=== PATIENT | female | born 1950 | race Caucasian/White ===

== ENCOUNTER 2017-03-01 07:05 | Day surgery (SDC) | payer OTHER ==
[2017-02-28 09:04] VITALS: BMI 36.4
[~2017-03-01 07:05] MED LIST: LACTATED RINGERS 1,000 ML IV SCH; LIDOCAINE 1% 20 ML VIAL (10MG/ML) FOR IV START INTRADERMA PRN
[2017-03-01 07:38] VITALS: TEMP 96.9
[2017-03-01] MEDS ORDERED: LIDOCAINE 1% 20 ML VIAL (10MG/ML) FOR IV START INTRADERMA ONE (07:45)
[2017-03-01 07:52] LABS: Glucose,Whole Blood 117 mg/dL (75-99)
[2017-03-01] MEDS ORDERED: PROPOFOL 10 MG/ML 20 ML VIAL IV ONE (08:30)
[2017-03-01] MEDS ORDERED: LIDOCAINE 1% INJ 10MG/ML (20 ML MDV) ONE (08:30)
[2017-03-01 09:13] VITALS: PULSE 66; RESP 16
--- NOTE | 2017-03-01 09:16 | P.PCN ---
Date of Procedure: 03/01/17 Procedure(s) Performed: Procedure: Total colonoscopy. Preoperative diagnosis: Screening for neoplasia, as family history of rectal cancer. Postoperative diagnosis: Less than ideal preparation, however, exam to the cecum show no obvious pathology. Preparation: HalfLytely prep. Sedation: Was provided by anesthesia. Brief clinical history: The patient is a 66-year-old female who is referred for this evaluation for screening for neoplasia because of family history of rectal cancer in her father. Her last exam was around 6 years ago. She has no abdominal complaints, bleeding or anemia. Procedure: With the patient on her left lateral decubitus position and after informed consent and adequate sedation, the perianal area was inspected and it did not show any fissures or fistulas. There were no masses felt on digital rectal examination. The Olympus CFQ 160L video colonoscope was then inserted in the rectum in the usual fashion and advanced to the cecum. The preparation was less than ideal, however, I was able to have a fairly low after prolonged irrigation. No large polyps or tumors were seen. The mucosa appeared healthy. Small and diminutive polyps or superficial pathology could have been missed because of her preparation. No obvious diverticular disease was seen. I retroflexed endoscope in the rectum before the endoscope was withdrawn. The patient tolerated the procedure well. Plan: The patient was reassured. With her family history and less than ideal preparation today, I recommended a repeat exam in 2-3 years. We could go to a 5 year schedule after that. She will follow-up with you as planned.
[2017-03-01 09:34] VITALS: BP 147/80
== END 2017-03-01 10:02 | disposition home or self-care (01) ==
LOC: ORWHC2ENDO 07:05
DX: Z12.11 Encounter for screening for malignant neoplasm of colon (principal); Z80.0 Family history of malignant neoplasm of digestive organs; Z88.2 Allergy status to sulfonamides; Z91.040 Latex allergy status; I10 Essential (primary) hypertension; E78.5 Hyperlipidemia, unspecified; K21.9 Gastro-esophageal reflux disease without esophagitis; Z79.899 Other long term (current) drug therapy; Z79.1 Long term (current) use of non-steroidal anti-inflammatories (NSAID)
CPT/HCPCS: J2001; J2704; G0105

== ENCOUNTER → 2021-04-02 | Outpatient (CLI) | payer MEDICARE, OTHER ==
[2021-04-02 15:18] LABS: HCT 41.4 % (34.0-46.0); HGB 13.7 gm/dL (11.4-16.0); MCH 28.7 pg (25.0-35.0); MCHC 33.2 g/dL (31.0-37.0); MCV 86.6 fL (80.0-100.0); Mean Platelet Volume 7.2; Platelet Count 259 k/uL (150-450); RBC 4.78 m/uL (3.80-5.40); RDW 14.8 % (11.5-15.5); WBC 8.6 k/uL (3.8-10.6)
[2021-04-02 15:31] LABS: Albumin 4.8 g/dL (3.5-5.0); Potassium 4.6 mmol/L (3.5-5.1); Total Bilirubin 0.4 mg/dL (0.2-1.3); Total Protein 7.7 g/dL (6.3-8.2)
[2021-04-02 15:32] LABS: INR 0.9 (<1.2); Prothrombin Time 10.1 sec (9.0-12.0)
[2021-04-02 16:01] LABS: Appearance,Urine Clear (Clear); Bilirubin,Urine Negative (Negative); Blood,Urine Negative (Negative); Color,Urine Light Yellow; Glucose,Urine (UA) Negative (Negative); Ketones,Urine Negative (Negative); Leukocyte Esterase,Urine Negative (Negative); Nitrite,Urine Negative (Negative); PH, Urine 6.5 (5.0-8.0); Protein,Urine Negative (Negative); Specific Gravity,Urine 1.015 (1.001-1.035); Urobilinogen,Urine <2.0 mg/dL (<2.0)
== END | disposition home or self-care (01) ==
LOC: LABPAT 13:26
PROVIDERS: ATTEND Orthopaedic Surgery
DX: Z01.812 Encounter for preprocedural laboratory examination (principal); M16.11 Unilateral primary osteoarthritis, right hip
CPT/HCPCS: 36415; 80053; 81003; 85027; 85610; 85730; 87070

== ENCOUNTER 2021-04-14 08:06 | Day surgery (SDC) | payer MEDICARE, OTHER ==
[2021-04-07 15:26] VITALS: BMI 37.4
[~2021-04-14 08:06] MED LIST changes: +ACETAMINOPHEN TAB 500 MG TAB PO PRN; +DEXAMETHASONE SOD PHOSPHATE 4 MG/ML 1 ML VIAL IV ONE; +GABAPENTIN 300 MG CAP PO PRN; +LIDOCAINE 1% (10MG/ML) FOR IV START INTRADERMA PRN; -LIDOCAINE 1% 20 ML VIAL (10MG/ML) FOR IV START INTRADERMA PRN; +MELOXICAM 7.5 MG TAB PO PRN; +MIDAZOLAM 2 MG/2 ML VIAL IV PRN; +ONDANSETRON 4 MG/2 ML VIAL IVP ONE; +TRANEXAMIC ACID 1,000 MG in SODIUM CHLORIDE 0.9% 100 ML IVPB PRN
[2021-04-14] MEDS ORDERED: HYDROmorphone 0.5 MG/0.5 ML SYRINGE IVP PRN ×2 (09:11)
[2021-04-14] MEDS ORDERED: NALOXONE 0.4 MG/ML 1 ML VIAL IV PRN (09:11)
[2021-04-14] MEDS ORDERED: HYDROmorphone 0.2 MG/1 ML SYRINGE IVP PRN (09:11)
[2021-04-14] MEDS ORDERED: TRANEXAMIC ACID 1,000 MG/10 ML VIAL ONE (09:12)
[2021-04-14] MEDS ORDERED: PROPOFOL 10 MG/ML 20 ML VIAL IV ONE (09:12)
[2021-04-14] MEDS ORDERED: HEPARIN SODIUM,PORCINE 10,000 UNIT/ML 1 ML VIAL ONE (09:12)
[2021-04-14] MEDS ORDERED: LIDOCAINE 1% INJ 10MG/ML (20 ML MDV) ONE (09:12)
[2021-04-14] MEDS ORDERED: SUCCINYLCHOLINE CHLORIDE 100 MG/5 ML SYR IV ONE (09:12)
[2021-04-14] MEDS ORDERED: MIDAZOLAM 2 MG/2 ML VIAL ONE (09:12)
[2021-04-14] MEDS ORDERED: SODIUM CHLORIDE 0.9% 100 ML BAG ONE (09:12)
[2021-04-14] MEDS ORDERED: HYDROcodone/APAP 7.5-325MG 1 EACH TAB PO PRN ×2 (09:12)
[2021-04-14] MEDS ORDERED: SODIUM CHLORIDE 0.9% IRRIG 1,000 ML BTL IRRIGATION ONE (09:12)
[2021-04-14] MEDS ORDERED: fentaNYL (PF) 50 MCG/ML 2 ML AMP ONE (09:12)
[2021-04-14 09:13] LABS: Glucose,Whole Blood 131 mg/dL (75-99)
[2021-04-14] MEDS ORDERED: SODIUM CHLORIDE 0.9% 1,000 ML IV SCH (09:15)
[2021-04-14] MEDS ORDERED: ceFAZolin 3,000 MG in SODIUM CHLORIDE 0.9% IRRIGATIO 3,000 ML IRRIGATION ONE (09:17)
[2021-04-14] MEDS: ROPIVACAINE/EPI/CLONIDINE/KET 50 ML SYRINGE MISCELLANE PRN ×2 (09:35→10:30)
--- NOTE | 2021-04-14 10:42 | P.OP ---
Date of Procedure: 04/14/21 Preoperative Diagnosis: Severe osteoarthritis right hip Postoperative Diagnosis: Severe osteoarthritis right hip Procedure(s) Performed: Right total hip arthroplasty with a direct anterior approach Implants: [employer]hew Polarstem standard size 2 [employer]hew R3, 3 hole hemispherical acetabular shell, 50 mm [employer]hew Reflection 6.5 mm cancellus screw, 20 mm 2, 15 mm [employer]kin [employer]hew R3, XLPE 20 acetabular liner [employer]hew Oxinium femoral head 32 m, +0 All components were press-fit. The articulation is Oxinium on polyethylene. Anesthesia: GETA Surgeon: Kashif Dean Bender Machine #1: Radha Anderson Estimated Blood Loss (ml): 350 (115 mL returned with Cell Saver) Pathology: other (Femoral head) Condition: stable Disposition: PACU Indications for Procedure: After failure of conservative treatment we discussed the surgical and nonsurgical treatment options at length. Patient wishes to proceed with a total hip arthroplasty with a direct anterior approach. Complications specific to this procedure were discussed at length, including but not limited to infection, leg length discrepancy, dislocation, nerve injury, and fracture. Covid-19 was also discussed at length with the patient, and they are aware of the current policies and procedures. The patient was given the option of delaying surgery, but they elect to proceed knowing these risks. Patient is aware of all these complications and informed consent was obtained Operative Findings: The operative findings are consistent with severe osteoarthritis of the right hip Description of Procedure: Patient was seen and evaluated in the preoperative area and the consent was reviewed. The operative site was marked with a skin marker. The patient was then brought to the operating room and given preoperative antibiotics intravenously. 1 g of Tranexamic acid was also given intravenously. A general anesthetic was administered by the anesthesia department. The patient was then placed on the [place] table with the bony prominences well-padded. The hip area was then prepped with a ChloraPrep solution and draped in the usual sterile fashion. A universal timeout was then performed, which confirmed the patient's name, surgical site, ALLERGIES, and procedure being performed on the consent. Next the incision site was located at 1 cm distal to the anterior superior iliac spin e along the flexion crease of the hip. The skin and subcutaneous tissues were sharply incised. Incision was carefully dissected down to the fascia overlying the tensor fascia kareen muscle. This fascia was then incised in line with the incision. Care was taken to stay laterally in order to avoid injuring the lateral femoral cutaneous nerve. Next, using blunt finger dissection, the tensor fascia kareen muscle was dissected off its investing fascia. The muscle was then carefully retracted laterally with a cobra retractor over the lateral neck of the femur. Next, the circumflex vessels were identified and cauterized using the AquaMantis device. The anterior hip capsule was then exposed. The capsule was then opened and an inverted T fashion. Cobra retractors were then placed intracapsularly. The retractors were maintained intracapsular throughout the procedure. The proximal femur was then visualized. A small amount of traction was placed on the leg. The femoral neck was then osteotomized appropriate level above the lesser trochanter. A small wedge of bone was then removed from the remaining femoral head. Next, using a corkscrew the femoral head was removed from the acetabulum. On gross visual inspection, the femoral head had complete loss of articular cartilage and multiple periarticular osteophytes. The femoral head was then measured. Attention was then turned to the acetabulum. The acetabulum was exposed and any remaining labrum was excised. Sequential reaming of the acetabulum was performed using fluoroscopic guidance until there was a good bed of bleeding cancellus bone. When the appropriate size was reached, a trial was then placed. The position and fit of the trial was checked with fluoroscopy. The trial was then removed. Then, using fluoroscopic guidance, the final implant was impacted at 20 of anteversion and 40 of abduction, and fully seated in the acetabulum. 3 screws were then placed in the acetabulum. Again fluoroscopy was used to check position of the screws. Next, the liner was then impacted, with a 20 elevated liner located in the anterior superior quadrant. Component locking was confirmed. Attention was then directed to the femur. With the aid of the [place] table, the femur was externally rotated to approximately 130, extended, and adducted under the opposite leg. A side hook was then placed under the proximal femur, and the side hook elevator was used to elevate the proximal femur while releasing the capsule. Retractors were then placed. A capsular release was performed, as well as a release of the conjoined tendon, which afforded excellent visualization of the proximal femur. Next, a box osteotome was used to lateralize the proximal femur. A brusher hand was then used to locate the femoral canal. Sequential broaching was then performed with appropriate size which afforded excellent fixation in the proximal femur. A trial was then placed with appropriate head and neck, and the hip was gently reduced with the aid of the [place] table. Fluoroscopy was then used to check position of the components, as well as to ensure equal leg lengths. The hip was then gently dislocated and the trials were then removed. Final implants were then impacted and the hip was again reduced. Final fluoroscopic x-rays confirmed that the components were in anatomic position, as well as equal leg lengths. The hip was also taken through range of motion, and found to be stable. The hip was then copiously irrigated with antibiotic solution with pulsatile lavage. The hip was then irrigated with Irrisept solution. The soft tissues were then injected with a ropivacaine solution, which consisted of 246.25 mg of ropivacaine, 0.5 mg of epinephrine, 30 mg of Toradol, 80 g of clonidine, and 48.45 mL of sterile water, for a total of 100 mL of fluid injected. A second dose of 1 g of Tranexamic acid was also given intravenously. Any blood collected by Cell Saver was then returned to the patient at this time. The fascia was then closed with 2-0 strata fix suture. The subcutaneous tissue was closed with 3-0 Vicryl. The subcuticular tissue was closed with 3-0 strata fix suture. The skin was then closed with Exofin skin glue. After the glue and dried, and Optifoam silver impregnated dressing was applied. The patient was then transferred to the recovery room in stable condition. The automotive service assistant JAYJAY Freeman was required due to the complexity of surgery, and the need for skilled daycare assistant for positioning, draping, exposure, retraction, and closure of the wound.
[2021-04-14 11:16] VITALS: TEMP 96.8
[2021-04-14] MEDS: HYDROmorphone 0.5 MG/0.5 ML SYRINGE IVP PRN ×2 (11:32→11:40)
--- NOTE | 2021-04-14 11:45 | XR ---
EXAMINATION TYPE: XR Hip Limited RT DATE OF EXAM: 04/14/2021 COMPARISON: None HISTORY: Post right hip replacement TECHNIQUE: AP right hip FINDINGS: Displacement of the right C6 acetabular component. Surgical changes are within soft tissues . No acute fracture. IMPRESSION: 1. No acute fracture post right hip replacement
--- NOTE | 2021-04-14 11:49 | FL ---
Fluoroscopy INDICATION: Pain FINDINGS: Fluoroscopy time: 25 seconds. Images obtained: 4. IMPRESSIONS: 1. Documentation of fluoroscopy.
[2021-04-14] MEDS ORDERED: diphenhydrAMINE 50 MG/ML 1 ML VIAL IVP ONE (12:08)
[2021-04-14 12:46] VITALS: RESP 16
[2021-04-14 15:01] VITALS: BP 109/61; PULSE 67
== END 2021-04-14 15:51 | disposition home health service (06) ==
LOC: OR 08:06
PROVIDERS: ATTEND Orthopaedic Surgery
DX: M16.11 Unilateral primary osteoarthritis, right hip (principal); I11.9 Hypertensive heart disease without heart failure; E78.5 Hyperlipidemia, unspecified; G47.33 Obstructive sleep apnea (adult) (pediatric); K21.9 Gastro-esophageal reflux disease without esophagitis; Z97.3 Presence of spectacles and contact lenses; Z79.1 Long term (current) use of non-steroidal anti-inflammatories (NSAID); Z79.82 Long term (current) use of aspirin; Z79.899 Other long term (current) drug therapy; Z88.5 Allergy status to narcotic agent; Z88.8 Allergy status to other drugs, medicaments and biological substances; Z91.018 Allergy to other foods
CPT/HCPCS: 27130; 97162; 86891; 86900; 86901; 86850; 88300; 73501; 73502; C1776; J2250; J1200; J1644; J1100; J0690 ×2; J2405; J2001; J3010; J0330; J2704; J1170

== ENCOUNTER → 2021-11-09 | Outpatient (CLI) | payer MEDICARE, OTHER ==
[2021-11-09 15:46] LABS: HCT 40.6 % (34.0-46.0); HGB 13.4 gm/dL (11.4-16.0); MCH 28.5 pg (25.0-35.0); MCHC 32.9 g/dL (31.0-37.0); MCV 86.8 fL (80.0-100.0); Mean Platelet Volume 7.5; Platelet Count 268 k/uL (150-450); RBC 4.68 m/uL (3.80-5.40); RDW 14.7 % (11.5-15.5); WBC 7.5 k/uL (3.8-10.6)
[2021-11-09 15:48] LABS: Appearance,Urine Clear (Clear); Bilirubin,Urine Negative (Negative); Blood,Urine Negative (Negative); Color,Urine Light Yellow; Glucose,Urine (UA) Negative (Negative); Ketones,Urine Negative (Negative); Leukocyte Esterase,Urine Negative (Negative); Nitrite,Urine Negative (Negative); Protein,Urine Negative (Negative); Specific Gravity,Urine 1.018 (1.001-1.035); Urobilinogen,Urine <2.0 mg/dL (<2.0)
[2021-11-09 15:55] LABS: ALT 21 U/L (4-34); AST 25 U/L (14-36); African American GFR (CKD) >90 (>60 ml/min/1.73 sqM); Albumin 4.6 g/dL (3.5-5.0); Alkaline Phosphatase 97 U/L (38-126); Anion Gap 13 mmol/L; Blood Urea Nitrogen 25 mg/dL (7-17); Calcium 9.9 mg/dL (8.4-10.2); Carbon Dioxide 23 mmol/L (22-30); Chloride 101 mmol/L (98-107); Glucose 102 mg/dL (74-99); Non-African American GFR(CKD) 88 (>60 ml/min/1.73 sqM); Potassium 4.5 mmol/L (3.5-5.1); Sodium 137 mmol/L (137-145); Total Bilirubin 0.7 mg/dL (0.2-1.3); Total Protein 8.1 g/dL (6.3-8.2)
[2021-11-09 16:04] LABS: INR 0.9 (<1.2); Partial Thromboplastin Time 23.5 sec (22.0-30.0); Prothrombin Time 9.9 sec (9.0-12.0)
== END | disposition home or self-care (01) ==
LOC: LABPAT 14:21
PROVIDERS: ATTEND Orthopaedic Surgery
DX: Z01.812 Encounter for preprocedural laboratory examination (principal); M16.9 Osteoarthritis of hip, unspecified
CPT/HCPCS: 80053; 81003; 85027; 85610; 85730; 87070

== ENCOUNTER 2021-11-17 07:51 | Day surgery (SDC) | payer MEDICARE, OTHER ==
[2021-11-11 11:05] VITALS: BMI 37.8
[~2021-11-17 07:51] MED LIST changes: -DEXAMETHASONE SOD PHOSPHATE 4 MG/ML 1 ML VIAL IV ONE; +HYDROmorphone 0.5 MG/0.5 ML SYRINGE IVP PRN; -LACTATED RINGERS 1,000 ML IV SCH; -MIDAZOLAM 2 MG/2 ML VIAL IV PRN; -ONDANSETRON 4 MG/2 ML VIAL IVP ONE
[2021-11-17 08:57] LABS: Glucose,Whole Blood 139 mg/dL (75-99)
[2021-11-17] MEDS: LACTATED RINGERS 1,000 ML IV SCH (08:58)
[2021-11-17] MEDS: ONDANSETRON 4 MG/2 ML VIAL IVP ONE (09:25)
[2021-11-17] MEDS ORDERED: HYDROmorphone 0.5 MG/0.5 ML SYRINGE IVP PRN ×2 (09:48)
[2021-11-17] MEDS ORDERED: ONDANSETRON 4 MG/2 ML VIAL IVP PRN (09:48)
[2021-11-17] MEDS ORDERED: HYDROmorphone 0.2 MG/1 ML SYRINGE IVP PRN (09:48)
[2021-11-17] MEDS ORDERED: NALOXONE 0.4 MG/ML 1 ML VIAL IV PRN ×2 (09:48→17:36)
[2021-11-17] MEDS ORDERED: HYDROcodone/APAP 7.5-325MG 1 EACH TAB PO PRN ×2 (09:52)
[2021-11-17] MEDS ORDERED: SUCCINYLCHOLINE CHLORIDE 100 MG/5 ML SYR IV ONE (09:55)
[2021-11-17] MEDS ORDERED: MIDAZOLAM 2 MG/2 ML VIAL ONE (09:55)
[2021-11-17] MEDS ORDERED: LIDOCAINE 1% INJ 10MG/ML (20 ML MDV) ONE (09:55)
[2021-11-17] MEDS ORDERED: HYDROmorphone (PF) 1 MG/ML ONE (09:55)
[2021-11-17] MEDS ORDERED: NEOSTIGMINE 1 MG/ML 10 ML VIAL ONE (09:55)
[2021-11-17] MEDS ORDERED: fentaNYL (PF) 50 MCG/ML 2 ML AMP ONE (09:55)
[2021-11-17] MEDS ORDERED: ROCURONIUM 10 MG/ML (5 ML VIAL) IV ONE (09:55)
[2021-11-17] MEDS ORDERED: GLYCOPYRROLATE 0.2 MG/ML 2 ML VIAL ONE (09:55)
[2021-11-17] MEDS ORDERED: PROPOFOL 10 MG/ML 20 ML VIAL IV ONE (09:55)
[2021-11-17] MEDS ORDERED: ROPIVACAINE 5 MG/ML 30 ML VIAL MISCELLANE ONE ×2 (09:58→11:09)
--- NOTE | 2021-11-17 11:17 | P.OP ---
Date of Procedure: 11/17/21 Preoperative Diagnosis: Severe osteoarthritis left hip Postoperative Diagnosis: Severe osteoarthritis left hip Procedure(s) Performed: Total hip arthroplasty with a direct anterior approach Implants: [employer] Nephew Polarstem standard size 3 [employer]kin [employer]hew R3, 3 hole hemispherical acetabular shell, 48 mm [employer]hew Reflection 6.5 mm cancellus screw, 20 mm x 25 mm [employer]kin [employer]hew R3, XLPE 20 acetabular liner [employer]hew Oxinium femoral head 32 m, +0 All components were press-fit. The articulation is Oxinium on polyethylene. Anesthesia: GETA Surgeon: Kashif Dean Rating Clerk #1: Radha Anderson Estimated Blood Loss (ml): 500 Pathology: other (Femoral head) Condition: stable Disposition: PACU Indications for Procedure: After failure of conservative treatment we discussed the surgical and nonsurgical treatment options at length. Patient wishes to proceed with a total hip arthroplasty with a direct anterior approach. Complications specific to this procedure were discussed at length, including but not limited to infection, leg length discrepancy, dislocation, nerve injury, and fracture. Covid-19 was also discussed at length with the patient, and they are aware of the current policies and procedures. The patient was given the option of delaying surgery, but they elect to proceed knowing these risks. Patient is aware of all these complications and informed consent was obtained Operative Findings: The operative findings are consistent with severe osteoarthritis of the left hip Description of Procedure: Patient was seen and evaluated in the preoperative area and the consent was reviewed. The operative site was marked with a skin marker. The patient was then brought to the operating room and given preoperative antibiotics int ravenously. 1 g of Tranexamic acid was also given intravenously. A general anesthetic was administered by the anesthesia department. The patient was then placed on the [place] table with the bony prominences well-padded. The hip area was then prepped with a ChloraPrep solution and draped in the usual sterile fashion. A universal timeout was then performed, which confirmed the patient's name, taylor rgical site, ALLERGIES, and procedure being performed on the consent. Next the incision site was located at 1 cm distal and 2 cm lateral to the anterior superior iliac spine. The skin and subcutaneous tissues were sharply incised. Incision was carefully dissected down to the fascia overlying the tensor fascia kareen muscle. This fascia was then incised in line with the incision. Care was taken to stay laterally in order to avoid injuring the lateral femoral cutaneous nerve. Next, using blunt finger dissection, the tensor fascia kareen muscle was dissected off its investing fascia. The muscle was then carefully retracted laterally with a cobra retractor over the lateral neck of the femur. Next, the circumflex vessels were identified and cauterized using the AquaMantis device. The anterior hip capsule was then exposed. The capsule was then opened and an inverted T fashion. Cobra retractors were then placed intracapsularly. The retractors were maintained intracapsular throughout the procedure. The proximal femur was then visualized. Fluoroscopic x-rays were then taken in order to evaluate the preoperative leg lengths. A small amount of traction was placed on the leg. The femoral neck was then osteotomized at the appropriate level above the lesser trochanter. A small wedge of bone was then removed from the remaining femoral head. Next, using a corkscrew the femoral head was removed from the acetabulum. On gross visual inspection, the femoral head had complete loss of articular cartilage and multiple periarticular osteophytes. The femoral head was then measured. Attention was then turned to the acetabulum. The acetabulum was exposed and any remaining labrum was excised. Sequential reaming of the acetabulum was performed using fluoroscopic guidance until there was a good bed of bleeding cancellus bone. When the appropriate size was reached, a trial was then placed. The position and fit of the trial was checked with fluoroscopy. The trial was then removed. Then, using fluoroscopic guidance, the final implant was impacted at 20 of anteversion and 40 of abduction, and fully seated in the acetabulum. 2 screws were then placed in the acetabulum. Again fluoroscopy was used to check position of the screws. Next, the liner was then impacted, with a 20 elevated liner located in the anterior superior quadrant. Component locking was confirmed. Attention was then directed to the femur. With the aid of the [place] table, the femur was externally rotated to approximately 130, extended, and adducted under the opposite leg. A side hook was then placed under the proximal femur, and the side hook elevator was used to elevate the proximal femur while releasing the capsule. Retractors were then placed. A capsular release was performed, as well as a release of the conjoined tendon, which afforded excellent visualization of the proximal femur. Next, a box osteotome was used to lateralize the proximal femur. A utility hand was then used to locate the femoral canal. Sequential broaching was then performed with appropriate size which afforded excellent fixation in the proximal femur. A trial was then placed with appropriate head and neck, and the hip was gently reduced with the aid of the [place] table. Fluoroscopy was then used to check position of the components, as well as to ensure equal leg lengths. The hip was then gently dislocated and the trials were then removed. Final implants were then impacted and the hip was again reduced. Final fluoroscopic x-rays confirmed that the components were in anatomic position, as well as equal leg lengths. The hip was also taken through range of motion, and found to be stable. The hip was then copiously irrigated with antibiotic solution with pulsatile lavage. The hip was then irrigated with Irrisept solution. The soft tissues were then injected with a ropivacaine solution. A second dose of 1 g of Tranexamic acid was also given intravenously. The fascia was then closed with 2-0 strata fix suture. The subcutaneous tissue was closed with 3-0 Vicryl. The subcuticular tissue was closed with 3-0 strata fix suture. The skin was then closed with Exofin skin glue. After the glue and dried, and Optifoam silver impregnated dressing was applied. The patient was then transferred to the recovery room in stable condition. The library circulation assistant JAYJAY Freeman was required due to the complexity of surgery, and the need for skilled certified surgical tech/first assistant for positioning, draping, exposure, retraction, and closure of the wound.
--- NOTE | 2021-11-17 12:24 | XR ---
EXAMINATION TYPE: XR Hip Limited LT, one view DATE OF EXAM: 11/17/2021 Comparison: None Clinical History: 71-year-old female Status post hip surgery, assess surgical alignment Findings: Image shows placement of left hip total arthroplasty. Acetabular cup and femoral stem components of t he prosthesis appear well seated without periprosthetic fracture. Alignment grossly anatomic. Some sc attered soft tissue air related to recent operation. Impression: Uncomplicated postoperative appearance left hip total arthroplasty.
--- NOTE | 2021-11-17 12:39 | FL ---
EXAMINATION TYPE: FL guidance operating room, XR Hip Limited LT DATE OF EXAM: 11/17/2021 CLINICAL HISTORY: Left hip pain and osteoarthritis. TECHNIQUE: Fluoroscopy. Intraoperative limited view of left hip. COMPARISON: None. FINDINGS: Fluoroscopic guidance was provided during left hip replacement procedure performed by Dr. Dean. A total of 29 seconds of fluoroscopic time was utilized during the procedure and 3 spot im ages was acquired. Images acquired show metallic artifact from left hip arthroplasty satisfactory in position on frontal projection on intraoperative images obtained. IMPRESSION: As Above.
[2021-11-17] MEDS ORDERED: MAGNESIUM HYDROXIDE 2,400 MG/10 ML CUP PO PRN (17:36)
[2021-11-17] MEDS ORDERED: ACETAMINOPHEN TAB 500 MG TAB ONE (17:53)
[2021-11-17] MEDS ORDERED: ACETAMINOPHEN TAB 500 MG TAB PO ONE (17:55)
[2021-11-17] MEDS ORDERED: LORATADINE 10 MG TAB PO PRN (18:13)
[2021-11-17] MEDS ORDERED: ADAPALENE TOPICAL PRN (18:13)
[2021-11-17] MEDS ORDERED: PANTOPRAZOLE 40 MG TABLET PO PRN (18:13)
[2021-11-17] MEDS ORDERED: CLOTRIMAZOLE 1% CREAM 30 GM TUBE TOPICAL PRN (18:13)
[2021-11-17] MEDS ORDERED: DICLOFENAC SODIUM GEL 100 GM TUBE TOPICAL PRN (18:13)
[2021-11-17] MEDS ORDERED: IBUPROFEN 200 MG TAB PO ONE (19:00)
[2021-11-17] MEDS ORDERED: VIT C PO SCH (21:00)
[2021-11-17] MEDS ORDERED: [UNRECOGNIZED DRUG - OTHER] PO SCH (21:00)
[2021-11-17] MEDS ORDERED: GLUT PO SCH (21:00)
[2021-11-17] MEDS ORDERED: MV MIN PO SCH (21:00)
[2021-11-17] MEDS ORDERED: amLODIPine 10 MG TAB PO SCH (21:00)
[2021-11-17] MEDS ORDERED: SENNOSIDES-DOCUSATE SODIUM 1 EACH TAB PO SCH (21:00)
[2021-11-17] MEDS ORDERED: LACTOBACILLUS ACIDOPH & BULGAR 1 EACH PACKET PO SCH (21:00)
[2021-11-17] MEDS ORDERED: LYSINE PO SCH (21:00)
[2021-11-17] MEDS: CALCIUM CARB-VIT D 500 MG-5 MCG TAB PO SCH (21:55)
[2021-11-17] MEDS: METOPROLOL TARTRATE 50 MG TAB PO SCH (21:55)
[2021-11-17] MEDS: GABAPENTIN 100 MG CAP PO SCH (21:55)
[2021-11-17] MEDS: ASPIRIN 325 MG TAB PO SCH (21:55)
[2021-11-18] MEDS: ONDANSETRON 4 MG/2 ML VIAL IVP ONE (03:42)
[2021-11-18] MEDS: SODIUM CHLORIDE 0.9% 1,000 ML IV SCH ×3 (03:42→15:37)
[2021-11-18] MEDS: ACETAMINOPHEN TAB 500 MG TAB PO PRN ×2 (05:15→14:33)
[2021-11-18] MEDS: IBUPROFEN 600 MG TAB PO PRN ×2 (05:15→14:34)
[2021-11-18 05:19] VITALS: RESP 16; TEMP 98.9
[2021-11-18 07:10] LABS: Basophils % (A) 0 %; Eosinophils # (A) 0.1 k/uL (0-0.7); Eosinophils % (A) 1 %; HCT 31.4 % (34.0-46.0); HGB 10.5 gm/dL (11.4-16.0); Lymphocytes # (A) 1.3 k/uL (1.0-4.8); Lymphocytes % (A) 16 %; MCHC 33.4 g/dL (31.0-37.0); MCV 86.7 fL (80.0-100.0); Mean Platelet Volume 7.8; Monocytes # (A) 0.6 k/uL (0-1.0); Monocytes % (A) 7 %; Neutrophils # (A) 6.3 k/uL (1.3-7.7); Neutrophils % (A) 75 %; Platelet Count 212 k/uL (150-450); RBC 3.62 m/uL (3.80-5.40); RDW 14.9 % (11.5-15.5); WBC 8.4 k/uL (3.8-10.6)
[2021-11-18] MEDS: LACTATED RINGERS 1,000 ML IV SCH (07:17)
[2021-11-18] MEDS ORDERED: MULTIVITAMINS, THERA 1 EACH TAB PO SCH (09:00)
[2021-11-18] MEDS ORDERED: PSYLLIUM HUSK 100% 6 GM PACKET PO SCH (09:00)
[2021-11-18] MEDS ORDERED: NON FORMULARY DRUG (Omega-3 Fatty Acids/Fish Oil [Fish Oil 1,000 Mg Softgel] 1 EACH Capsul PO SCH (09:00)
[2021-11-18] MEDS: METOPROLOL TARTRATE 50 MG TAB PO SCH (10:20)
[2021-11-18] MEDS: CALCIUM CARB-VIT D 500 MG-5 MCG TAB PO SCH (10:20)
[2021-11-18] MEDS: GABAPENTIN 100 MG CAP PO SCH (10:21)
[2021-11-18] MEDS: ASPIRIN 325 MG TAB PO SCH (10:26)
[2021-11-18 10:50] VITALS: BP 118/70; PULSE 97
--- NOTE | 2021-11-18 12:00 | P.DS ---
Providers Expected date of discharge: 11/18/21 Attending physician: Kashif Dean Consults: 11/17/21 17:35 Consult Physician Routine Consulting Provider: Emmanuel Ramos Consult Reason/Comments: medical management Do you want consulting provider notified?: Yes Primary care physician: [facility] - Discharge Diagnosis(es) (1) Primary osteoarthritis of left hip Current Visit: Yes Status: Acute (2) Status post left hip replacement Current Visit: Yes Status: Acute Hospital Course: This is a 71 -year-old female with a known history of degenerative arthritis of the left hip. The patient presented to the orthopedic office for evaluation and treatment. After discussion and consideration the patient elects to proceed with a left direct anterior total hip arthroplasty. The patient was seen preoperatively by her primary care physician and cleared for surgery. The patient was admitted to [facility] on 11/17/2021 for a left direct anterior total hip arthroplasty. The procedure was performed without complication or sequelae. The patient is doing well postoperatively. Labs and vital signs are stable the day of discharge. On the day of discharge the patient's hip incision is healing well. There is minimal erythema. There is no drainage noted at this time. There is minimal soft tissue swelling to the hip and thigh. The patient has full foot and ankle motion without difficulty or pain. Neurovascular status to the left lower extr emity is intact. The patient will be discharged home today in stable condition. Pertinent Studies: Laboratory Tests 11/18/21 06:32 WBC 8.4 RBC 3.62 L Hgb 10.5 L Hct 31.4 L Patient Condition at Discharge: Stable Plan - Discharge Summary Discharge Rx Participant: Yes New Discharge Prescriptions: New Aspirin 325 mg PO BID #60 tab HYDROcodone/APAP 7.5-325MG [[place] 7.5-325] 1 - 2 tab PO Q6H PRN #32 tab PRN Reason: Pain Sennosides [Senokot] 2 tab PO DAILY PRN #60 tablet PRN Reason: Constipation Ondansetron Odt [Zofran Odt] 1 tab PO Q8HR PRN #10 tab PRN Reason: Nausea No Action Metoprolol Tartrate [Lopressor] 100 mg PO BID Gabapentin [Neurontin] 100 mg PO BID Omeprazole 20 mg PO DAILY PRN PRN Reason: Heartburn Docusate [Colace] 200 mg PO HS Ibuprofen [Motrin] 800 mg PO BID PRN PRN Reason: Pain Aspirin 81 mg PO DAILY Acetaminophen Tab [Tylenol Tab] 500 mg PO TID PRN PRN Reason: Pain [place]-3 Fatty Acids/Fish Oil [Fish Oil 1,000 mg Softgel] 1 each PO DAILY amLODIPine BESYLATE 10 mg PO HS Menthol Gel 1 applicate TOPICAL DIRECTED PRN PRN Reason: Pain Evolocumab [Repatha Sureclick] 140 mg SQ Q14D Mv-Min/Vit C/Glut/Lysine/Hc124 [Airborne Tablet Chewable] 3 tablet PO HS Adapalene [Adapalene 0.1% Cream] 1 applic TOPICAL HS PRN PRN Reason: Rash Multivitamins, Thera [Multivitamin (formulary)] 1 tab PO DAILY Cholecalciferol (Unknown Dose) 1 cap PO DAILY Calcium With Vitamin D 1 tab PO BID L.acidoph,Paracasei, B.lactis [Probiotic] 2 each PO HS Diclofenac Sodium [Voltaren Gel] 2 gram TOPICAL DIRECTED PRN PRN Reason: Pain Clotrimazole Cream [Lotrimin Cream] 1 applic TOPICAL DAILY PRN PRN Reason: Rash Loratadine [Claritin] 10 mg PO Q12H PRN PRN Reason: allergy sx Wheat Dextrin [Benefiber] 1 packet PO DAILY Discharge Medication List Acetaminophen Tab [Tylenol Tab] 500 mg PO TID PRN 02/28/17 [History] Aspirin 81 mg PO DAILY 02/28/17 [History] Docusate [Colace] 200 mg PO HS 02/28/17 [History] Gabapentin [Neurontin] 100 mg PO BID 02/28/17 [History] Ibuprofen [Motrin] 800 mg PO BID PRN 02/28/17 [History] Metoprolol Tartrate [Lopressor] 100 mg PO BID 02/28/17 [History] [place]-3 Fatty Acids/Fish Oil [Fish Oil 1,000 mg Softgel] 1 each PO DAILY 02/28/17 [History] Omeprazole 20 mg PO DAILY PRN 02/28/17 [History] Adapalene [Adapalene 0.1% Cream] 1 applic TOPICAL HS PRN 04/07/21 [History] Calcium With Vitamin D 1 tab PO BID 04/07/21 [History] Cholecalciferol (Unknown Dose) 1 cap PO DAILY 04/07/21 [History] Diclofenac Sodium [Voltaren Gel] 2 gram TOPICAL DIRECTED PRN 04/07/21 [History] Evolocumab [Repatha Sureclick] 140 mg SQ Q14D 04/07/21 [History] L.acidoph,Paracasei, B.lactis [Probiotic] 2 each PO HS 04/07/21 [History] Menthol Gel 1 applicate TOPICAL DIRECTED PRN 04/07/21 [History] Multivitamins, Thera [Multivitamin (formulary)] 1 tab PO DAILY 04/07/21 [History] amLODIPine BESYLATE 10 mg PO HS 04/07/21 [History] Clotrimazole Cream [Lotrimin Cream] 1 applic TOPICAL DAILY PRN 11/11/21 [History] Loratadine [Claritin] 10 mg PO Q12H PRN 11/11/21 [History] Mv-Min/Vit C/Glut/Lysine/Hc124 [Airborne Tablet Chewable] 3 tablet PO HS 11/11/21 [History] Wheat Dextrin [Benefiber] 1 packet PO DAILY 11/11/21 [History] Aspirin 325 mg PO BID #60 tab 11/17/21 [Rx] HYDROcodone/APAP 7.5-325MG [[place] 7.5-325] 1 - 2 tab PO Q6H PRN #32 tab 11/17/21 [Rx] Ondansetron Odt [Zofran Odt] 1 tab PO Q8HR PRN #10 tab 11/17/21 [Rx] Sennosides [Senokot] 2 tab PO DAILY PRN #60 tablet 11/17/21 [Rx] Follow up Appointment(s)/Referral(s): [facility], [NON-STAFF] - 1-2 Days Kashif Dean DO [Doctor of Osteopathic Medicine] - 12/04/21 10:00 am Patient Instructions/Handouts: *Surgery [facility] - (Anesthesia) Discharge Instructions Outpatient Surgery, How to Use an Incentive Spirometer (DC), Anterior Hip Replacement (DC) Activity/Diet/Wound Care/Special Instructions: Weightbearing as tolerated with walker. Leave dressing intact. Dressing may be removed by home care nurse or by patient in 7 days. Then change dressing twice daily until follow up. May shower with initial dressing intact and after removal. If dressing become saturated, please remove. Please take aspirin 325mg twice daily for 30 days to prevent blood clots. Recommend use of compression stockings daily until follow up to help prevent swelling and blood clots. May remove at night before sleeping. Please follow[facility]up with [facility] 2 weeks and call with any questions or concerns, . Discharge Disposition: HOME WITH HOME HEALTH SERVICES
--- NOTE | 2021-11-18 16:36 | CONS ---
CONSULTATION REASON FOR CONSULTATION: Regarding hypertension and multiple medical issues requested by Orthopedic Surgery. HISTORY OF PRESENT ILLNESS: This 71-year-old woman with the past medical history of CAD GERD, hypertension, DJD, being followed by Dr. Vidales in the outpatient setting underwent left hip arthroplasty through a direct anterior approach. There is no history of any fevers, rigors, chills. No headache, loss of consciousness or seizures at this time. PAST HISTORY: CAD, GERD, hypertension, dementia and DJD. HOME MEDICATIONS: Reviewed include menthol wheat supplements, Claritin, clotrimazole, Tylenol, omega-3 fatty acid, ibuprofen, Colace, Voltaren gel, amlodipine, omeprazole. Doses and other medications reviewed. ALLERGIES: Multiple allergies ( ), ULTRAM, LATEX, SULFA, ENALAPRIL, LISINOPRIL, NAPROSYN, OXYBUTYNIN, SIMVASTATIN, ( ) and COFFEE. FAMILY HISTORY: History of colon cancer in the family. SOCIAL HISTORY: No history of smoking. Occasional alcohol intake. REVIEW OF SYSTEMS: ENT No history of diminished hearing or vision. CARDIOVASCULAR No angina or palpitations. RESPIRATORY As mentioned earlier. GI No nausea, vomiting, or diarrhea. No dysuria or hematuria. NERVOUS No numbness or weakness. ALLERGY/IMMUNOLOGY No asthma or hayfever. MUSCULOSKELETAL As mentioned earlier. HEMATOLOGY/ONCOLOGY Anemia. ENDOCRINE No history of diabetes or hypothyroidism. CONSTITUTIONAL As mentioned earlier. DERMATOLOGY Negative. RHEUMATOLOGY Negative, PSYCHIATRY As mentioned earlier. PHYSICAL EXAMINATION: Alert and oriented. Pulse 75, blood pressure 130/73, respirations 16, temperature 98.9, pulse ox 94% on room air. HEENT: Conjunctivae normal. Oral mucosa moist. NECK: No jugular venous distention. No lymph node enlargement. CARDIOVASCULAR: S1, S2, muffled. No S3, no S4, RESPIRATORY: Diminished breath sounds at the bases. A few scattered rhonchi and crackles. ABDOMEN: Soft, nontender. No mass palpable. LEGS: Status post surgery. NERVOUS SYSTEM: Higher functions mentioned earlier. Moves all four limbs. No focal motor or sensory deficits. LYMPHATICS: No lymph node in neck or axilla. SKIN: No rash. JOINTS: No active deforming arthropathy. LAB: Hemoglobin 10.5, glucose 139, Covid-19 is negative. ASSESSMENT: 1. Status post left total hip joint arthroplasty. 2. History of CAD/stent. 3. Hypertension. 4. Hyperlipidemia. 5. History DJD. 6. History of sleep apnea. 7. History of bladder surgery. 8. History of rectocele, cystocele. 9. History of gastroesophageal reflux disease. 10.FULL CODE. 11.Obesity with body mass index of 37.7.\. RECOMMENDATIONS AND DISCUSSION: In this 71-year-old woman who presented with multiple medical issues, at this time I recommend continue the current management. Resume the home medications. DVT prophylaxis. Incentive spirometry. Also recommend close followup with primary physician in the outpatient setting. We will follow the patient closely. Thank you Dr. Dean for letting us participate in the care of this patient. MMODL / IJN: [id number] /
== END 2021-11-18 16:25 | disposition home health service (06) ==
LOC: OR 07:51 → 5NMEDONC 13:45 → OR 11-18 16:25
PROVIDERS: ATTEND Orthopaedic Surgery
DX: M16.12 Unilateral primary osteoarthritis, left hip (principal); I25.10 Atherosclerotic heart disease of native coronary artery without angina pectoris; I11.9 Hypertensive heart disease without heart failure; E78.5 Hyperlipidemia, unspecified; K21.9 Gastro-esophageal reflux disease without esophagitis; E11.9 Type 2 diabetes mellitus without complications; F03.90 Unspecified dementia, unspecified severity, without behavioral disturbance, psychotic disturbance, mood disturbance, and anxiety; Z90.710 Acquired absence of both cervix and uterus; Z20.822 Contact with and (suspected) exposure to COVID-19; G47.30 Sleep apnea, unspecified; E66.9 Obesity, unspecified; Z68.37 Body mass index [BMI] 37.0-37.9, adult; Z96.641 Presence of right artificial hip joint; Z97.3 Presence of spectacles and contact lenses; Z95.0 Presence of cardiac pacemaker; Z95.5 Presence of coronary angioplasty implant and graft; Z90.722 Acquired absence of ovaries, bilateral; Z98.890 Other specified postprocedural states; Z79.1 Long term (current) use of non-steroidal anti-inflammatories (NSAID); Z79.82 Long term (current) use of aspirin; Z79.891 Long term (current) use of opiate analgesic; Z79.899 Other long term (current) drug therapy; Z88.6 Allergy status to analgesic agent; Z88.5 Allergy status to narcotic agent; Z88.2 Allergy status to sulfonamides; Z88.8 Allergy status to other drugs, medicaments and biological substances; Z91.018 Allergy to other foods; Z91.040 Latex allergy status
CPT/HCPCS: 97530 ×2; 97162; 97166; 86900; 86901; 85025; 86850; 88300; 87635; 73501; 36415; 27130; C1776; J2250; J2710; J0690; J2405; J2001; J3010; J1170; J2795; J0330; J2704

== ENCOUNTER → 2022-03-01 | Outpatient (CLI) | payer MEDICARE, OTHER | END | disposition home or self-care (01) | LOC: LABWHC1 14:04 | PROVIDERS: ATTEND Orthopaedic Surgery | DX: M25.552 Pain in left hip (principal); I10 Essential (primary) hypertension | CPT/HCPCS: 36415; 85652; 86140 ==

== ENCOUNTER → 2022-08-13 | Outpatient (CLI) | payer MEDICARE, OTHER ==
[2022-08-13 17:05] LABS: INR 0.9 (<1.2); Partial Thromboplastin Time 25.1 sec (22.0-30.0); Prothrombin Time 9.9 sec (9.0-12.0)
[2022-08-13 22:23] LABS: Appearance,Urine Clear (Clear); Bilirubin,Urine Negative (Negative); Blood,Urine Negative (Negative); Color,Urine Yellow (Yellow); Ketones,Urine Negative (Negative); Nitrite,Urine Negative (Negative); Specific Gravity,Urine 1.028 (1.001-1.030); Urobilinogen,Urine 0.2 (0.2,1.0)
[2022-08-13 22:35] LABS: HCT 38.1 % (37.2-46.3); HGB 11.6 g/dL (12.0-15.0); MCH 25.6 pg (27.0-32.0); MCHC 30.4 g/dL (32.0-37.0); MCV 84.1 fL (80.0-97.0); Mean Platelet Volume 9.8 fL (9.5-12.2); NRBC Per 100 WBC 0 /100 WBCS (0.0-0.0); Platelet Count 302 X 10*3/uL (140-440); RBC 4.53 X 10*6/uL (4.10-5.20); RDW 16.2 % (11.5-14.5); WBC 6.35 X 10*3/uL (4.50-10.00)
[2022-08-13 23:56] LABS: African American GFR (CKD) 100.6 (60.0-200.0); Albumin 4.4 g/dL (3.8-4.9); Albumin/Globulin Ratio 1.38 (1.60-3.17); Anion Gap 12.4 mmol/L (10.00-18.00); BUN/Creat Ratio 39.71 Ratio (12.00-20.00); Blood Urea Nitrogen 27.6 mg/dL (9.0-27.0); Calcium 9.2 mg/dL (8.7-10.3); Carbon Dioxide 26.4 mmol/L (20.0-27.5); Globulin 3.2 g/dL (1.6-3.3); Non-African American GFR(CKD) 86.8 (60.0-200.0); Potassium 4.4 mmol/L (3.5-5.5); Total Bilirubin 0.3 mg/dL (0.30-1.20); Total Protein 7.6 g/dL (6.2-8.2)
== END | disposition home or self-care (01) ==
LOC: LABPAT 15:42
PROVIDERS: ATTEND Orthopaedic Surgery
DX: Z01.812 Encounter for preprocedural laboratory examination (principal)
CPT/HCPCS: 80053; 81003; 85027; 85610; 85730

== ENCOUNTER → 2022-08-16 | Outpatient (CLI) | payer MEDICARE, OTHER | END | disposition home or self-care (01) | LOC: LABPAT 15:12 | PROVIDERS: ATTEND Orthopaedic Surgery | DX: Z53.9 Procedure and treatment not carried out, unspecified reason (principal) ==

== ENCOUNTER 2022-08-24 09:22 | Inpatient (IN) | payer MEDICARE, OTHER ==
[~2022-08-24 09:22] MED LIST changes: +DEXAMETHASONE SOD PHOSPHATE 4 MG/ML 1 ML VIAL IV ONE; -LIDOCAINE 1% (10MG/ML) FOR IV START INTRADERMA PRN; +ONDANSETRON 4 MG/2 ML VIAL IVP ONE; -TRANEXAMIC ACID 1,000 MG in SODIUM CHLORIDE 0.9% 100 ML IVPB PRN; +TRANEXAMIC ACID IN NACL,ISO-OS 1,000 MG in SALINE 1 100ML.BAG IVPB PRN
[2022-08-24] MEDS ORDERED: ONDANSETRON 4 MG/2 ML VIAL IVP PRN (09:35)
[2022-08-24] MEDS ORDERED: NALOXONE 0.4 MG/ML 1 ML VIAL IV PRN (09:35)
[2022-08-24] MEDS ORDERED: MAGNESIUM HYDROXIDE 2,400 MG/10 ML CUP PO PRN (09:35)
[2022-08-24] MEDS ORDERED: HYDROmorphone 0.5 MG/0.5 ML SYRINGE IVP PRN ×3 (09:35)
[2022-08-24] MEDS ORDERED: HYDROcodone/APAP 7.5-325MG 1 EACH TAB PO PRN ×2 (09:37)
[2022-08-24] MEDS ORDERED: LACTATED RINGERS 1,000 ML IV ONE ×2 (11:01→13:47)
[2022-08-24] MEDS ORDERED: ceFAZolin 1,000 MG in SODIUM CHLORIDE 0.9% 1,000 ML IRRIGATION ONE (12:01)
[2022-08-24] MEDS ORDERED: SUCCINYLCHOLINE CHLORIDE 200 MG/10 ML VIAL IV ONE (12:03)
[2022-08-24] MEDS ORDERED: LIDOCAINE 2% INJ 20 MG/ML (2 ML VIAL) ONE (12:03)
[2022-08-24] MEDS ORDERED: fentaNYL (PF) 50 MCG/ML 2 ML AMP ONE (12:03)
[2022-08-24] MEDS ORDERED: MIDAZOLAM 2 MG/2 ML VIAL ONE (12:03)
[2022-08-24] MEDS ORDERED: TRANEXAMIC ACID IN NACL,ISO-OS 1,000 MG/100 ML BAG ONE (12:03)
[2022-08-24] MEDS ORDERED: HYDROmorphone (PF) 1 MG/ML ONE (12:03)
[2022-08-24] MEDS ORDERED: PROPOFOL 10 MG/ML 20 ML VIAL IV ONE (12:03)
[2022-08-24] MEDS ORDERED: ROPIVACAINE 5 MG/ML 30 ML VIAL MISCELLANE ONE ×2 (12:34→13:30)
[2022-08-24] MEDS ORDERED: VANCOMYCIN 1,000 MG VIAL MISCELLANE ONE ×2 (12:36→13:31)
[2022-08-24] MEDS ORDERED: TOBRAMYCIN SULFATE 1.2 GM VIAL MISCELLANE ONE ×2 (12:36→13:31)
--- NOTE | 2022-08-24 13:51 | P.OP ---
Date of Procedure: 08/24/22 Preoperative Diagnosis: Loose acetabular component left total hip arthroplasty Postoperative Diagnosis: Loose acetabular component left total hip arthroplasty Procedure(s) Performed: 1. Revision left total hip arthroplasty with revision of the acetabular shell and conversion to a dual mobility liner 2. Placement of Stimulan on antibiotic beads for infectious prophylaxis 3. Placement of Prevena wound VAC dressing secondary to patient's high BMI and increased risk of incisional breakdown secondary to revision procedure Implants: [employer] Redapt multi hole hemispherical acetabular shell, 54 mm [employer] Reflection 6.5 mm cancellus screw, 20 mm 3 [employer] OR30, 42 mm ID, 54 mm OD, Oxinium dual mobility liner [employer] OR30, 28 mm ID, 42 mm OD, XLPE Dual mobility insert [employer] Oxinium femoral head 28 m, +0 Stimulan antibiotic beads 10 cc Montage bone graft All components were press-fit. The articulation is Oxinium on polyethylene. [facility] Surgeon: Kashif Dean Industrial Relations Analyst #1: Radha Anderson Estimated Blood Loss (ml): 500 Pathology: other (Cultures 2) Condition: stable Disposition: PACU Indications for Procedure: This is a 72-year-old female that had a left total hip arthroplasty performed in November 2021. She continued to experience pain and difficulty ambulating in her left hip. Sequential x-rays confirmed loosening of acetabular component. An infectious workup is failed to demonstrate an infection into the hip area. After discussion of the surgical nonsurgical treatment options with her at length, I recommended a revision of the acetabular component and informed consent was obtained. Operative Findings: The operative findings are consistent with a grossly loose acetabular component. There is no suspicion of infection. The femoral component was found to be well fixed. Description of Procedure: Patient was seen and evaluated in the preoperative area and the consent was reviewed. The operative site was marked with a skin marker. The patient was then brought to the operating room and given preoperative antibiotics intravenously. 1 g of Tranexamic acid was also given intravenously. A spinal anesthetic was administered by the anesthesia department. The patient was then placed on the [place] table with the bony prominences well-padded. The hip area was then prepped with a ChloraPrep solution and draped in the usual sterile fashion. A universal timeout was then performed, which confirmed the patient's name, surgical site, ALLERGIES, and procedure being performed on the consent. Next the incision site was located at 1 cm distal and 2 cm lateral to the anterior superior iliac spine. The skin and subcutaneous tissues were sharply incised. Incision was carefully dissected down to the fascia overlying the tensor fascia kareen muscle. This fascia was then incised in line with the incision. Care was taken to stay laterally in order to avoid injuring the lateral femoral cutaneous nerve. Next, using blunt finger dissection, the tensor fascia kareen muscle was dissected off its investing fascia. The muscle was then carefully retracted laterally with a cobra retractor over the lateral neck of the femur. Next, the circumflex vessels were identified and cauterized using the AquaMantis device. The anterior hip capsule was then exposed. The capsule was then opened and an inverted T fashion. A small amount of clear fluid was encountered which was cultured 2. Cobra retractors were then placed intracapsularly. The retractors were maintained intracapsular throughout the procedure. The proximal femur was then visualized. Scar tissue was excised from around the hip joint and capsule in order to visualize the hip. The hip was then gently dislocated and the proximal femur was exposed. Femoral head was then removed with an osteotome and a mallet. Femoral component was inspected and found to be well fixed. Attention was then directed to the acetabulum. The acetabulum was exposed by excising scar and synovium from around the hip implant. Once acetabular component was exposed, Remigio F liner was then removed with the removal tool. Next the 2 acetabular screws were then removed using the appropriate screwdriver. On inspection the acetabular component was grossly loose and was removed without difficulty. On inspection of the acetabulum, was found to be a good stock of bone with no evidence of any significant ostial lysis. Sequential reaming of the acetabulum was performed using fluoroscopic guidance until there was a good bed of bleeding cancellus bone. When the appropriate size was reached, a trial was then placed. The position and fit of the trial was checked with fluoroscopy. The trial was then removed. Then, using fluoroscopic guidance, the final implant was impacted at 20 of anteversion and 40 of abduction, and fully seated in the acetabulum. The Montage bone graft was placed in the acetabulum prior to impacting the shell. 3 screws were then placed in the acetabulum. Again fluoroscopy was used to check position of the screws. Next, the dual mobility liner was then impacted, Component locking was confirmed. Attention was then directed to the femur. A trial was then placed with appropriate dual mobility head , and the hip was gently reduced with the aid of the [place] table. Fluoroscopy was then used to check position of the components, as well as to evaluate the leg lengths and offset. The leg lengths and offset were measured as closely as possible to ensure stability of the hip. The hip was then gently dislocated and the trials were then removed. Final implants were then impacted and the hip was again reduced. Final fluoroscopic x-rays confirmed that the components were in anatomic position. The leg lengths and offset were measured and were found to coincide with the trial measurements. The hip was also taken through range of motion, and found to be stable. The hip was then copiously irrigated with antibiotic solution with pulsatile lavage. The hip was then irrigated with Irrisept solution. The soft tissues were then injected with a ropivacaine solution. A second dose of 1 g of Tranexamic acid was also given intravenously. The fascia was then closed with 2-0 strata fix suture. The subcutaneous tissue was closed with 3-0 Vicryl. The subcuticular tissue was closed with 3-0 strata fix suture. A Prevena wound VAC dressing was then applied over the incision. This was done due to the patient's high BMI and risk for incisional breakdown secondary to that BMI and also a revision procedure.. The patient was then transferred to the recovery room in stable condition. The bilingual administrative assistant JAYJAY Freeman was required due to the complexity of surgery, and the need for skilled surgical endoscopist for positioning, draping, exposure, retraction, and closure of the wound.
--- NOTE | 2022-08-24 13:57 | FL ---
EXAMINATION TYPE: FL guidance operating room, XR Hip Limited LT DATE OF EXAM: 08/24/2022 COMPARISON: NONE HISTORY: 72 year-old female left hip revision FINDINGS: Intraoperative fluoroscopy during revision of the left arthroplasty. Partially visualized right thora coplasty. Some type of stimulator device monitor device extends into the upper right pelvis. FLUOROSCOPY Fluoroscopy time of 27 seconds was used during left hip revision surgery. 3 image/s document/s the p rocedure. IMPRESSION: Intraoperative fluoroscopy as above.
[2022-08-24] MEDS ORDERED: diphenhydrAMINE 50 MG/ML 1 ML VIAL IVP ONE (14:42)
--- NOTE | 2022-08-24 15:11 | XR ---
EXAMINATION TYPE: XR Hip Limited LT DATE OF EXAM: 08/24/2022 Comparison: 11/17/2021 Clinical History: 72-year-old female Status post hip surgery, assess surgical alignment Findings: Revision left hip arthroplasty demonstrated. Acetabular cup and femoral stem components appear well s eated. Suspect some antibiotic cement beads about the left hip and lateral soft tissues. Surgical paolo in is also noted. No periaortic fracture seen. Impression: Revision left hip total arthroplasty as above. Query placement of antibiotic cement beads.
[2022-08-24] MEDS: LACTATED RINGERS 1,000 ML IV SCH (15:36)
[2022-08-24] MEDS: SODIUM CHLORIDE 0.9% 1,000 ML IV SCH ×2 (15:37→23:55)
[2022-08-24] MEDS: ASPIRIN 325 MG TAB PO SCH (20:12)
[2022-08-24] MEDS ORDERED: ACETAMINOPHEN TAB 500 MG TAB PO PRN (20:36)
[2022-08-24] MEDS ORDERED: amLODIPine 10 MG TAB PO SCH (21:00)
[2022-08-24] MEDS ORDERED: SENNOSIDES-DOCUSATE SODIUM 1 EACH TAB PO SCH (21:00)
[2022-08-24] MEDS: GABAPENTIN 100 MG CAP PO SCH (22:58)
[2022-08-24] MEDS: CALCIUM CARB-VIT D 500 MG-5 MCG TAB PO SCH (22:58)
[2022-08-24] MEDS: METOPROLOL TARTRATE 50 MG TAB PO SCH (22:59)
[2022-08-25] MEDS: LACTATED RINGERS 1,000 ML IV SCH (04:10)
[2022-08-25] MEDS: SODIUM CHLORIDE 0.9% 1,000 ML IV SCH (08:44)
[2022-08-25] MEDS: CALCIUM CARB-VIT D 500 MG-5 MCG TAB PO SCH (08:47)
[2022-08-25] MEDS: GABAPENTIN 100 MG CAP PO SCH (08:47)
[2022-08-25] MEDS: METOPROLOL TARTRATE 50 MG TAB PO SCH (08:47)
[2022-08-25] MEDS: ASPIRIN 325 MG TAB PO SCH (08:47)
[2022-08-25] MEDS ORDERED: CHOLECALCIFEROL 25 MCG (1000 IU) TABLET PO SCH (09:00)
[2022-08-25] MEDS ORDERED: NON FORMULARY DRUG (Omega-3 Fatty Acids/Fish Oil [Fish Oil 1,000 Mg Softgel] 1 EACH Capsul PO SCH (09:00)
[2022-08-25] MEDS ORDERED: ASPIRIN 81 MG PO SCH (09:00)
[2022-08-25] MEDS ORDERED: MULTIVITAMINS, THERA 1 EACH TAB PO SCH (09:00)
[2022-08-25 09:01] LABS: Basophils # (A) 0.01 X 10*3/uL (0.00-0.10); Basophils % (A) 0.1 %; Eosinophils # (A) 0 X 10*3/uL (0.04-0.35); Eosinophils % (A) 0 %; HCT 29.8 % (37.2-46.3); HGB 9.6 g/dL (12.0-15.0); Immature Grans, Automated 0.3 %; Lymphocytes # (A) 1.25 X 10*3/uL (0.90-5.00); Lymphocytes % (A) 13.2 %; MCH 26.2 pg (27.0-32.0); MCHC 32.2 g/dL (32.0-37.0); MCV 81.4 fL (80.0-97.0); Mean Platelet Volume 9.8 fL (9.5-12.2); Monocytes # (A) 0.69 X 10*3/uL (0.20-1.00); Monocytes % (A) 7.3 %; NRBC Per 100 WBC 0 /100 WBCS (0.0-0.0); Neutrophils # (A) 7.51 X 10*3/uL (1.80-7.70); Neutrophils % (A) 79.1 %; Platelet Count 259 X 10*3/uL (140-440); RBC 3.66 X 10*6/uL (4.10-5.20); RDW 16.1 % (11.5-14.5); WBC 9.49 X 10*3/uL (4.50-10.00)
[2022-08-25 11:06] VITALS: RESP 18
[2022-08-25 11:20] VITALS: BP 120/66; PULSE 68; TEMP 98.1
--- NOTE | 2022-08-25 11:22 | P.PN ---
Subjective Progress Note Date: 08/25/22 Principal diagnosis: Failure of components Status post revision total L hip This is a 72-year-old female postop day 1 total L hip revision. Her vitals are currently stable. Hemoglobin is low at 9.6 L. Prevena wound vac continues to be used and will continue use at home. New batteries were placed into the Prevena wound vac due to intermittent suction. Wound vac appears properly sealed. Patient has a plan for transportation home and will remain homebound for the instructed time. Objective - Vital Signs Vital signs: Vital Signs Temp 98.2 F 08/25/22 01:58 Pulse 60 08/25/22 01:58 Resp 20 08/25/22 01:58 BP 123/76 08/25/22 01:58 Pulse Ox 96 08/25/22 01:58 FiO2 Intake & Output 08/24/22 08/25/22 08/25/22 18:59 06:59 18:59 Intake Total 1751 300 Output Total 520 Balance 1231 300 Weight 87.5 kg Intake: IV 1751 Oral 300 Output: Urine 20 Estimated Blood Loss 500 Other: Voiding Method Bedside Commode # Voids 1 5 - Exam This is a 72-year-old female who appears well, in no acute distress. She is alert and oriented 3. Patient is able to speak in full sentences with minimal effort. Patient's mood seems appropriate and skin appears warm, pink, and dry. Provera wound VAC is in use over the incision site and seal appears appropriate. Full AROM of foot and ankle motion without difficulty or pain. NV status grossly intact no deficits noted. - Labs CBC & Chem 7: 08/25/22 06:05 Labs: Abnormal Lab Results - Last 24 Hours (Table) 08/25/22 Range/Units 06:05 RBC 3.66 L (4.10-5.20) X 10*6/uL Hgb 9.6 L (12.0-15.0) g/dL Hct 29.8 L (37.2-46.3) % MCH 26.2 L (27.0-32.0) pg RDW 16.1 H (11.5-14.5) % Eosinophils # 0 L (0.04-0.35) X 10*3/uL Microbiology - Last 24 Hours (Table) 08/24/22 12:44 Gram Stain - Preliminary Hip - Left Wound Culture - Preliminary 08/24/22 12:45 Gram Stain - Preliminary Hip - Left Wound Culture - Preliminary 08/24/22 12:44 Anaerobic Culture - Preliminary Hip - Left 08/24/22 12:45 Anaerobic Culture - Preliminary Hip - Left Assessment and Plan (1) Primary osteoarthritis of left hip Current Visit: Yes Status: Acute Code(s): M16.12 - UNILATERAL PRIMARY OSTEOARTHRITIS, LEFT HIP SNOMED Code(s): 188312644205993 (2) S/P revision of total hip Current Visit: Yes Status: Acute Code(s): Z96.649 - PRESENCE OF UNSPECIFIED ARTIFICIAL HIP JOINT SNOMED Code(s): 311619483 Plan: The clinical findings are discussed with the patient. Prevena wound vac canister was switched out which corrected the problem. She may be discharged to home today. See discharge summary.
--- NOTE | 2022-08-25 11:27 | P.DS ---
Providers Date of admission: 08/24/22 10:30 Expected date of discharge: 08/25/22 Attending physician: Kashif Dean Consults: 08/24/22 09:35 Consult Physician Routine Consulting Provider: Migue Kim Reason/Comments: medical management Do you want consulting provider notified?: Yes Primary care physician: Stated None - Discharge Diagnosis(es) (1) Primary osteoarthritis of left hip Current Visit: Yes Status: Acute (2) S/P revision of total hip Current Visit: Yes Status: Acute Hospital Course: This is a 72-year-old female with known history of L hip replacement in the past with failure of components. The patient presents for evaluation. After discussion and consideration patient elects to proceed with revision total hip arthroplasty with direct anterior approach. The patient is seen preoperatively by primary care physician and cleared for surgery. Patient is admitted to [facility] on 08/24/2022 for total hip arthroplasty with direct anterior approach. The procedure is performed without complication or sequelae. The patient is doing well postoperatively. Labs and vital signs are stable on day of discharge. On day of discharge patient's hip incision is healing well. There is minimal erythema. There is no drainage noted at this time. There is minimal soft tissue swelling to the hip and thigh. Patient has full foot and ankle motion without difficulty or pain. Neurovascular status to the lower extremity is intact. Patient is discharged to home in good condition. Please see med rec for accurate list of home medications. Plan - Discharge Summary Discharge Rx Participant: No New Discharge Prescriptions: New Aspirin 325 mg PO BID #60 tab HYDROcodone/APAP 7.5-325MG [[place] 7.5-325] 1 - 2 tab PO Q6H PRN #32 tab PRN Reason: Pain Sennosides [Senokot] 2 tab PO DAILY PRN #60 tablet PRN Reason: Constipation No Action Metoprolol Tartrate [Lopressor] 100 mg PO BID Gabapentin [Neurontin] 100 mg PO BID Docusate [Colace] 200 mg PO HS Ibuprofen [Motrin] 800 mg PO BID PRN PRN Reason: Pain Aspirin 81 mg PO DAILY Acetaminophen Tab [Tylenol Tab] 500 mg PO TID PRN PRN Reason: Pain [place]-3 Fatty Acids/Fish Oil [Fish Oil 1,000 mg Softgel] 1 each PO DAILY amLODIPine BESYLATE 10 mg PO HS Menthol Gel 1 applicate TOPICAL DIRECTED PRN PRN Reason: Pain Evolocumab [Repatha Sureclick] 140 mg SQ Q14D Multivitamins, Thera [Multivitamin (formulary)] 1 tab PO DAILY Cholecalciferol [Vitamin D3 (25 Mcg = 1000 Iu)] 25 mcg PO DAILY Calcium With Vitamin D 1 tab PO BID Discharge Medication List Acetaminophen Tab [Tylenol Tab] 500 mg PO TID PRN 02/28/17 [History] Aspirin 81 mg PO DAILY 02/28/17 [History] Docusate [Colace] 200 mg PO HS 02/28/17 [History] Gabapentin [Neurontin] 100 mg PO BID 02/28/17 [History] Ibuprofen [Motrin] 800 mg PO BID PRN 02/28/17 [History] Metoprolol Tartrate [Lopressor] 100 mg PO BID 02/28/17 [History] [place]-3 Fatty Acids/Fish Oil [Fish Oil 1,000 mg Softgel] 1 each PO DAILY 02/28/17 [History] Calcium With Vitamin D 1 tab PO BID 04/07/21 [History] Cholecalciferol [Vitamin D3 (25 Mcg = 1000 Iu)] 25 mcg PO DAILY 04/07/21 [History] Evolocumab [Repatha Sureclick] 140 mg SQ Q14D 04/07/21 [History] Menthol Gel 1 applicate TOPICAL DIRECTED PRN 04/07/21 [History] Multivitamins, Thera [Multivitamin (formulary)] 1 tab PO DAILY 04/07/21 [History] amLODIPine BESYLATE 10 mg PO HS 04/07/21 [History] Aspirin 325 mg PO BID #60 tab 08/24/22 [Rx] HYDROcodone/APAP 7.5-325MG [[place] 7.5-325] 1 - 2 tab PO Q6H PRN #32 tab 08/24/22 [Rx] Sennosides [Senokot] 2 tab PO DAILY PRN #60 tablet 08/24/22 [Rx] Follow up Appointment(s)/Referral(s): [facility], [NON-STAFF] - 1-2 Days ([facility] will call you to schedule your in home physical therapy visits. ) Kashif Dean DO [Doctor of Osteopathic Medicine] - 09/10/22 1:15 pm Activity/Diet/Wound Care/Special Instructions: Weightbearing as tolerated with walker. Leave wound vac in place for 7 days. May shower with initial dressing intact and after removal. If dressing become saturated, please remove. Please take aspirin 325mg twice daily for 30 days to prevent blood clots. Recommend use of compression stockings daily until follow up to help prevent swelling and blood clots. May remove at night before sleeping. Please follow[facility]up with [facility] in 7 days for wound vac removal. Call with any questions or concerns, . Discharge Disposition: HOME WITH HOME HEALTH SERVICES
--- NOTE | 2022-08-27 16:40 | CDI ---
Documentation Clarification Form Date: 08/27/2022 04:21:43 PM From: Tammi Rausch Phone: Admit Date: 08/24/2022 10:30:00 AM Patient Name: Rebecca Charles Visit Number: [id number] Discharge Date: 08/25/2022 02:34:00 PM ATTENTION: The Clinical Documentation Specialists (CDI) and [facility] Coding Staff appreciate your assistance in clarifying documentation. Please respond to the clarification below the line at the bottom and electronically sign. The CDI & [facility] Coding staff will review the response and follow-up if needed. Please note: Queries are made part of the Legal Health Record. If you have any questions, please contact the author of this message via ITS. Dr. Kashif Dean Your patient has a hemoglobin/hematocrit level of 9.6. Please clarify if there is an additional diagnosis and/or clinical significance related to these lab values. 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 Her vitals are currently stable. Hemoglobin is low at 9.6 L. Prevena wound vac continues to be used and will continue use at home. New batteries were placed into the Prevena wound vac due to intermittent suction. Wound vac appears properly sealed. Patient has a plan for transportation home and will remain homebound for the instructed time. Is there an additional diagnosis and/or clinical significance related to the above lab result/information: [ ] Acute blood loss anemia [ x] No clinical significance [ ] Unable to determine [ ] Other, please specify (Template Last Revised: December 2020) MTDD
== END 2022-08-25 14:34 | disposition home health service (06) | DRG 468 ==
LOC: 2ORMAIN 10:30 → EDSTATUS 12:10 → 4SSUR 14:55
PROVIDERS: ADMIT Orthopaedic Surgery; ATTEND Orthopaedic Surgery
PROC: 0SPB0JZ Removal of Synthetic Substitute from Left Hip Joint, Open Approach (ICD-10-PCS; 2022-08-24)
PROC: 0QU50JZ Supplement Left Acetabulum with Synthetic Substitute, Open Approach (ICD-10-PCS; 2022-08-24)
PROC: 3E0U029 Introduction of Other Anti-infective into Joints, Open Approach (ICD-10-PCS; 2022-08-24)
PROC: 0SRB01A Replacement of Left Hip Joint with Metal Synthetic Substitute, Uncemented, Open Approach (ICD-10-PCS; principal; 2022-08-24 12:05)
DX: T84.031A Mechanical loosening of internal left hip prosthetic joint, initial encounter (principal); M16.12 Unilateral primary osteoarthritis, left hip; Y79.2 Prosthetic and other implants, materials and accessory orthopedic devices associated with adverse incidents
CPT/HCPCS: 73501; 85025; 86850; 86900; 86901; 87070; 87075; 87205

== ENCOUNTER 2023-02-01 11:57 | Day surgery (SDC) | payer MEDICARE, OTHER ==
[2023-02-01 12:24] VITALS: TEMP 97.6
[2023-02-01] MEDS ORDERED: LIDOCAINE 1% (10MG/ML) FOR IV START INTRADERMA ONE (12:24)
[2023-02-01] MEDS ORDERED: LACTATED RINGERS 1,000 ML IV ONE (12:24)
[2023-02-01 12:36] LABS: Glucose,Whole Blood 115 mg/dL (70-110)
[2023-02-01] MEDS ORDERED: LIDOCAINE 2% INJ 20 MG/ML (2 ML VIAL) ONE (13:01)
[2023-02-01] MEDS ORDERED: PROPOFOL 10 MG/ML 20 ML VIAL IV ONE (13:01)
--- NOTE | 2023-02-01 13:16 | P.PCN ---
Date of Procedure: 02/01/23 Procedure(s) Performed: BRIEF HISTORY: Patient is a 72-year-old pleasant white female scheduled for an elective colonoscopy as a part of screening for colon cancer and family history of colon cancer. Her mother was diagnosed with colon cancer at age 55. PROCEDURE PERFORMED: Colonoscopy biopsy. PREOPERATIVE DIAGNOSIS: Screening for colon cancer and family history of colon cancer. IV sedation per Anesthesia. PROCEDURE: After informed consent was obtained, the patient, was brought into the endoscopy unit. IV sedation was administered by Anesthesia under continuous monitoring. Digital rectal examination was normal. Initially the Olympus CF-160 flexible video colonoscope was then inserted in the rectum, gradually advanced into the cecum without any difficulty. Careful examination was performed as the scope was gradually being withdrawn. Ileocecal valve and the appendiceal orifice were visualized and appeared normal. Prep was excellent. Mucosa of the cecum, appeared normal. In the ascending colon there was a 5 mm sessile polyp removed by cold biopsy. ascending colon, transverse colon, descending colon, sigmoid colon, and rectum appeared normal. Retroflexion was performed in the rectum and no lesions were seen. The patient tolerated the procedure well. IMPRESSION: 5 mm ascending colon polyp status post cold biopsy Rest of the colon appeared normal RECOMMENDATIONS: Findings of this examination were discussed with the patient as well as a family. He was advised to follow with the biopsy results and have a repeat colonoscopy in 5 years because of the family history of colon cancer.
[2023-02-01 13:57] VITALS: BP 140/80; PULSE 64; RESP 20
== END 2023-02-01 14:07 ==
LOC: ORWHC2ENDO 11:57
PROVIDERS: ATTEND Internal Medicine Gastroenterology
DX: Z12.11 Encounter for screening for malignant neoplasm of colon (principal); K63.5 Polyp of colon
CPT/HCPCS: 88305; 45380; J2704; J2001